=== PATIENT | female | born 1960 | race Caucasian/White ===

== ENCOUNTER 2016-06-18 15:16 | Outpatient (CLI) | payer OTHER ==
[2016-07-13] MEDS ORDERED: BUPROPION HCL150 M2 PO (14:46)
[2016-07-13] MEDS ORDERED: MELOXICAM7.5 MG PO (14:47)
[2016-07-13] MEDS ORDERED: CALCIUM 500 + D PO (14:47)
[2016-07-13] MEDS ORDERED: CYCLOBENZAPRINE5 MG PO (14:48)
[2016-07-13] MEDS ORDERED: MULTIPLE VITAMIN PO (14:48)
[2016-07-13] MEDS ORDERED: B CO PO (14:49)
[2016-07-13] MEDS ORDERED: [UNRECOGNIZED DRUG - OTHER] PO (14:49)
[2016-07-13] MEDS ORDERED: VITAMIN C500 M1 PO (14:50)
== END 2016-06-18 23:00 ==
LOC: LAB SRH 15:16
DX: Z01.812 Encounter for preprocedural laboratory examination (principal)
CPT/HCPCS: 92132

== ENCOUNTER → 2016-07-12 | Outpatient (CLI) | payer OTHER ==
[~2016-07-12] MED LIST: B CO PO; BUPROPION HCL150 M2 PO; CALCIUM 500 + D PO; CYCLOBENZAPRINE5 MG PO; DOCUSATE SODIU100 MG PO; ENTERIC COATED325 M1 PO; HYDROXYZINE PAM25 MG PO; MAPAP325 MG PO; MELOXICAM7.5 MG PO; MULTIPLE VITAMIN PO; OXYCODONE IR PO; VICODIN EQUIVAL1 TAB PO; VITAMIN C500 M1 PO; [UNRECOGNIZED DRUG - OTHER] PO; [UNRECOGNIZED DRUG - REMARK] PO
--- NOTE | 2016-07-12 13:09 | DIAGNOSTIC IMAGING REPORT ---
PROCEDURE: XR CHEST 2 VIEW INDICATION: PRE OP TECHNIQUE: PA and lateral views. COMPARISON: None. FINDINGS: Lungs are clear. Heart and mediastinum are normal. Thorax is normal. IMPRESSION: 1. Negative chest.
== END ==
LOC: RT SRH 05-31 13:00 → XR SRH 05-31 13:15 → RT SRH 12:15
DX: Z01.810 Encounter for preprocedural cardiovascular examination (principal); Z01.811 Encounter for preprocedural respiratory examination; Z01.812 Encounter for preprocedural laboratory examination
CPT/HCPCS: 90004; 90074; 90100; 94060; 95059

== ENCOUNTER 2016-07-18 07:12 | Inpatient (IN) | payer OTHER ==
[2016-07-18] VITALS (9 sets, daily range): BP systolic 110–173; BP diastolic 68–101
[~2016-07-18] VITALS: Ht 154.9 cm; Wt 70.0 kg
[~2016-07-18 07:12] MED LIST changes: -DOCUSATE SODIU100 MG PO; -ENTERIC COATED325 M1 PO; -HYDROXYZINE PAM25 MG PO; -MAPAP325 MG PO; -OXYCODONE IR PO; -VICODIN EQUIVAL1 TAB PO; -[UNRECOGNIZED DRUG - REMARK] PO
[2016-07-18] MEDS ORDERED: VICODIN EQUIVAL1 TAB PO (07:26)
--- NOTE | 2016-07-18 09:04 | Preoperative Progress Note ---
Preop Note Details Current Status: No Changes Physical Exam: No Changes Necessity: Still desired/necessary Other: CV Reviewed, Respiratory Reviewed, Review MARY LOU notes & Vitals
--- NOTE | 2016-07-18 09:04 | Preoperative Progress Note ---
Preop Note Details Current Status: No Changes Physical Exam: No Changes Necessity: Still desired/necessary Other: CV Reviewed, Respiratory Reviewed, Review MARY LOU notes & Vitals
--- NOTE | 2016-07-18 13:09 | Postoperative Progress Note ---
Postop Progress Note Preoperate Diagnosis: R hip DJD Postoperative Diagnosis: R hip DJD Surgeon: James Boyle MD Anesthesia: Spinal Findings: See dictation Procedure: R Total hip Arthroplasty Complications? No Condition: Stable EBL: 100 mL Fluid(s): 900 mL Drain(s): Hemovac Blood Administered: None Specimen(s) removed? No Grafts or Implants? Yes Graft/Implant type: Brown [employer] Nephew Synergy porous + WINTERS std offste size 11 femoral component, 36+0 oxinium femoral head, 52mm R3 acetabulat shell with one screw and central hole plug. 36 mm ID, 52 mm ODlateralized + 4mm R3 XLPE 20 degree acetab liner UHMWPE . (See nursing notes for details of grafts/implants)
--- NOTE | 2016-07-18 13:32 | DIAGNOSTIC IMAGING REPORT ---
PROCEDURE: XR HIP 2VW W W/O AP PELVIS-RT INDICATION: s/p R DERECK TECHNIQUE: AP view of the pelvis and hips with lateral view of the right hip. COMPARISON: None. FINDINGS: Right HIP: Right total hip replacement. Anatomic alignment. A drain is in place. PELVIS: Osseous pelvis is normal. IMPRESSION: 1. Negative pelvis and right the total hip replacement
--- NOTE | 2016-07-18 22:12 | OPERATIVE REPORT ---
DATE OF SURGERY: 07/18/2016 SURGEON: James Boyle MD PREOPERATIVE DIAGNOSIS: 1. Right hip degenerative joint disease with left shorter than right lower extremity limb length inequality secondary to prior femur fracture on the left side with radiographic evidence of heterotopic ossification about the greater trochanter on the left POSTOPERATIVE DIAGNOSIS: 1. Right hip degenerative joint disease with left shorter than right lower extremity limb length inequality secondary to prior femur fracture on the left side with radiographic evidence of heterotopic ossification about the greater trochanter on the left PROCEDURE PERFORMED: 1. Right total hip arthroplasty with Brown [employer] Nephew Synergy porous plus WINTERS standard offset size 11 femoral component, Oxinium 36 mm diameter +0 femoral head/ neck, 52 mm outer diameter R3 3-hole hemispherical stick tight acetabular shell with 1 screw and the central hole cover and 36 mm ID x 52 mm OD lateralize +4 mm R3 highly cross-linked XLPE 20-degree posterior superior elevated acetabular liner, ultra-high molecular weight polyethylene ANESTHESIA: Spinal. SPECIMENS: None. ESTIMATED BLOOD LOSS: 100 mL. FLUIDS: Blood replacement, 900 mL intravenous crystalloid. URINE OUTPUT: 180 mL per Ramirez. PATHOLOGY SPECIMEN: None. DRAINS: One medium Hemovac to be placed to suction when patient leaves the postanesthesia care unit. INDICATIONS: A 55-year-old woman has a history of prior left lower extremity left femur fracture, treated with intramedullary nail and subsequent hardware removal, gone on to have a left shorter than right lower extremity limb length inequality, which she thinks contributed to her developing end-stage right hip degenerative joint disease with [id number], loss of articular cartilage refractory to nonoperative interventions. We had preoperatively discussed using indomethacin for heterotopic ossification prophylaxis and that we could not likely fully correct her limb length inequality through her total hip replacement without leading to instability. Postoperative thromboembolic prophylaxis was agreed to be with aspirin. SURGICAL FINDINGS: Confirmed preoperative imaging. Bone quality was good. Hip stability was excellent. Via posterior approach she had grossly equalized limb length and absolute anterior stability, good soft tissue tension. She was stable in the position of sleep of 60 degrees flexion, maximum adduction and 75 degrees of internal rotation in the position of sitting in 90 degrees of flexion, neutral adduction and 60 degrees of internal rotation. Postoperative plan: X-rays will be obtained in the recovery room. She will have posterior hip precautions for 6 weeks. She will be weightbearing as tolerated with physical therapy. We will monitor her closely over the next 2 days and when standard discharge criteria are met, she will be discharged likely to home. Thromboembolic prophylaxis will be with knee-high TEDs and SCDs on bilateral lower extremities, as well as enteric-coated aspirin 325 mg twice daily for 6 weeks. Posterior hip precautions will be enforced for 6 weeks as well. She will return to clinic in 2 weeks for wound check and medication refill. Outpatient physical therapy referral as needed. SURGICAL TECHNIQUE: The patient was identified in the preoperative holding area. She denied any interval change in her medical condition. She had been cleared for surgery by her primary care provider. She was seen and examined by Anesthesia, nursing team members, and brought back to operating room where she was placed under a spinal anesthetic. Two grams of cefazolin were given intravenously for antibiotic prophylaxis. Pneumatic compression device was placed over knee-high MANDY hose on the nonoperative leg. The patient was placed in the right side up lateral decubitus position with an axillary roll after the Ramirez catheter was placed. Perineum and thorax were isolated off with plastic adhesive barrier drapes. Surgical pause was completed, confirming the correct patient, operative site, procedure, availability of implants and instrumentation, appropriate antibiotic delivery and thromboembolic prophylaxis, as well as a delivery of 1 g of intravenous tranexamic acid. Everyone in the room including surgical nursing, anesthetic team members were in agreement that we should proceed. The leg was circumferentially prepped from the rib cage to the plastic adhesive barrier drapes and all the way down the right hindquarter and lower extremity to the tips of the toes in a sterile fashion with ChloraPrep and draped free in a waterproof sterile fashion for surgery with stockinette over the leg to above the knee and skin isolated with Ioban. We marked an incision for posterior approach to the hip and executed the incision through skin and superficial dermis using electrocautery for deep dermis and subcutaneous adipose tissue. Fascia was swept and divided in line with the incision, splitting the gluteus billie proximally and the fascia krystin distally. The incision was subsequently extended further inferiorly for additional exposure. A Charnley retractor was placed. The piriformis was detached from its insertion and tagged with #2 FiberWire for retraction and subsequent repair. The short external rotators and posterior hip capsule were taken down off of their femoral insertion in 1 sleeve and tagged with #2 FiberWire for retraction, subsequent repair. The sciatic nerve was identified and protected throughout the procedure. The hip was dislocated posteriorly and the template placed to pranav the trajectory of the proximal femoral osteotomy, which was made with an oscillating saw. The femoral head was removed and sized. We reamed the acetabulum up initially in 2 mm increments after excising the degenerative labrum and soft tissue contents. Bone quality was excellent. We reamed to a 51, placed a trial 51 liner, felt that it fit well, impacted the 52 mm acetabular shell into position in appropriate anteversion and abduction while we shot for approximately 40 degrees of abduction and 20 degrees of anteversion. It had an excellent distinctive director speech language fit. Decision was made to place 1 screw in the posterior superior quadrant for additional stability as the plan was to use a +4 lateralizing liner with posterior lip for additional polyethylene thickness given her young age and additional stability posteriorly. The acetabulum was cleansed with pulse lavage after the central hole cover was placed and then the socket was packed with a clean laparotomy sponge and the proximal femur was delivered into the wound. We opened the canal with the box osteotome, used the canal finder to localize the axis of the femoral canal, suctioned the contents to minimize risk of fat embolism and then reamed up to the 11-12 reamer. The provisional proximal femoral osteotomy was already in a good position and we did not need to use the calcar reamer. We inspected the proximal femur and saw no longitudinal splits or other fractures of concern. We impacted into place the size 11 standard offset femoral component in appropriate anteversion to match her [place] anteversion and it had an excellent fit. Again, the proximal femur was inspected and there was no evidence of any split. Next, we trialed with various 36 mm femoral head, neck options. The 36 +0 provided appropriate leg length, soft tissue tension and stability as dictated above in the operative findings section. The definitive 36 mm Oxinium head with +0 neck length was then impacted onto the clean and dry Chakraborty taper and carefully reduced into the acetabulum. The wound was copiously irrigated and closed in layers using drill holes through the greater trochanter for repair of the capsule and short external rotators. The piriformis was sutured to the abductor tendon. A drain exited inferiorly and anteriorly. Fascia krystin and gluteal fascia were closed with [id number] 0 Vicryl, 2-0 Vicryl was used for Amy fascia and inverted undyed subdermal sutures, 3-0 V-Loc for the subcuticular closure and Dermabond over Steri-Strips for the skin. The drain was then used to instill 0.25% Marcaine with epinephrine and another gram of tranexamic acid into the operative field. Sterile dressings of Adaptic, 4 x 4's, and Tegaderm were applied. Abductor pillow was placed after the drapes were removed. The patient was transferred from the operating room table to the recovery room in the hospital bed, having tolerated the procedure well without apparent complication. All sponge, needle and instrument counts were reported correct prior to leaving the operating room.
[2016-07-19 02:48] VITALS: BP 125/62
[2016-07-19 06:29] VITALS: BP 125/74
--- NOTE | 2016-07-19 08:41 | Progress Note ---
Subjective General R hip pain controlled now on PO oxycodone but was poorly controlled at times last night. Pt inadverantly pulled out drain after minimal bloody output (40 mL ) per RN. Denies CP/SOB/N/T/W. Constitutional Denies: Fever, Chills, Sweats, Weakness. Respiratory Denies: SOB w/exertion. Neurological Denies: Weakness, Numbness. Physical Exam Vital Signs / I&Os Vital Signs Date Time Temp Pulse Resp B/P Pulse O2 O2 Flow FiO2 Ox Delivery Rate 07/19 0629 37.4 93 18 125/74 100 Room Air 07/19 0248 36.9 91 18 125/62 99 Room Air 07/18 2252 36.7 89 17 111/68 100 Room Air 07/18 1947 Room Air 07/18 1824 36.5 96 18 110/70 100 Room Air 07/18 1640 36.6 97 18 141/90 100 Room Air 07/18 1540 36.6 101 18 142/84 100 Room Air 07/18 1510 36.2 97 18 151/98 100 Room Air 07/18 1455 35.9 89 18 161/99 96 Room Air 07/18 1440 35.9 95 18 173/101 100 Room Air 07/18 1425 36.3 83 18 152/95 100 Room Air 07/18 1411 36.3 80 18 148/90 100 Room Air 0.0 07/18 1345 81 15 150/84 100 07/18 1335 81 15 152/81 100 07/18 1325 86 12 153/83 100 07/18 1315 81 13 145/89 98 07/18 1305 80 16 122/80 100 07/18 1255 90 20 132/83 100 07/18 1248 91 17 120/86 100 07/18 1243 36.3 94 15 138/83 100 nc 2.0 I&O 07/19 0000 07/18 1600 07/18 0800 Intake Total 120 4270 100 Output Total 1270 3310 Balance -1150 960 100 General Appearance Alert, Oriented X3, Cooperative, No acute distress, Abductor pillow in place. R SCDs off B not plugged in! Extremities Normal exam, No edema, No tenderness, calfs not tender Skin No Rashes, No Breakdown, No Significant Lesions, Dressings on and intact. Mild bloody drainage at drain site. Neurological Normal exam, Sensation intact, Fires B E&FHLs & AD&PFs Psych/Mental Status Mental status normal, Mood normal LAB Results Laboratory Tests 07/19 0550 Chemistry Plasma Sodium (136 - 145 mmol/L) 142 Plasma Potassium (3.5 - 5.1 mmol/L) 4.2 Plasma Chloride (98 - 107 mmol/L) 105 CO2 (Enzymatic) (21 - 32 mmol/L) 27 BUN (7 - 18 mg/dL) 10 Creatinine (0.6 - 1.3 mg/dL) 0.6 Est GFR ( Amer) (mL/min) >60 Est GFR (Non-Af Amer) (mL/min) >60 Glucose (70 - 110 mg/dL) 134 Plasma Calcium (8.5 - 10.1 mg/dL) 8.3 Hematology WBC (4.5 - 11.5 K/uL) 9.3 RBC (4.00 - 5.20 M/uL) 3.39 Hgb (12.0 - 16.0 gm/dL) 10.5 Hct (36.0 - 46.0 %) 31.4 MCV (80 - 100 fL) 93 MCH (26 - 34 pg) 31 RDW (11.6 - 14.8 %) 13.4 Neut % (Auto) (50 - 75 %) 69.5 Lymph % (Auto) (25 - 40 %) 22.4 [place] % (Auto) (3 - 14 %) 7.4 Eos % (Auto) (0 - 4 %) 0.5 Baso % (Auto) (0 - 2 %) 0.2 Plt Count, EDTA (150 - 400 K/uL) 242 PUBS MCHC (31 - 37 g/dL) 34 Imaging Post-op x-rays shjow well positioned, reduced R DERECK without fx. Assessment and Plan Problem List 1. Status post total replacement of right hip Plan Doing well POD#1 s/p R DERECK with hx left hip heterotopic bone after surgery for L fem fx and subsequent HWR. Will DC celebrex and start Indocin ant PT. Continue TEDs SCDs & ECASA 325mg 2x/d x 6 wks. Start PT with R posterior hip preecAUTIONS, WBAT R LE with walker.
[2016-07-19 11:13] VITALS: BP 199/68
[2016-07-19 14:24] VITALS: BP 112/62; BP 131/88
[2016-07-19 18:05] VITALS: BP 105/71
[2016-07-20 02:51] VITALS: BP 108/73
[2016-07-20 06:34] VITALS: BP 117/68
--- NOTE | 2016-07-20 08:05 | Progress Note ---
Subjective General Had hard day in PT yesterday - still needs to work on stairs for cearance to DC home tomorrow. Just NSAIDs, Tylenol and anxiolytics for pain control over night. Voided and had BM yest. Javi diet. Following posterior hip precautions. Constitutional Denies: Fever, Chills, Sweats, Weakness, Malaise. Respiratory Denies: Cough, Dry, SOB w/exertion. Cardiovascular Denies: Chest Pain. Physical Exam Vital Signs / I&Os Vital Signs Date Time Temp Pulse Resp B/P Pulse O2 O2 Flow FiO2 Ox Delivery Rate 07/20 0634 36.6 94 22 117/68 96 Room Air 0.0 07/20 0251 37.0 95 16 108/73 100 Room Air 0.0 07/20 0131 Room Air 07/19 1805 37.9 103 18 105/71 96 Room Air 07/19 1535 Room Air 0.0 07/19 1424 37.0 102 18 112/62 94 Room Air 07/19 1113 37.2 96 18 199/68 97 07/19 0935 Room Air I&O 07/20 0000 07/19 1600 07/19 0800 Intake Total 1020 1710 1377 Output Total 1200 1450 1790 Balance -180 260 -413 General Appearance Alert, Oriented X3, Cooperative, No acute distress Extremities No calf tenderness. Skin No Rashes, No Breakdown, No Significant Lesions, Dressings CDI, half dollar size bloody drainage on drain site dressing only. Neurological Normal speech, Sensation intact, No lateralizing signs, fires B AD& PFs Psych/Mental Status Mental status normal, Mood normal LAB Results Laboratory Tests 07/20 0530 Hematology Hgb (12.0 - 16.0 gm/dL) 10.3 Hct (36.0 - 46.0 %) 30.8 Assessment and Plan Problem List 1. Status post total replacement of right hip Plan Doing well POD#2. Will likely DC home tomorrow if/when cleared by PT. Will use Celebrex 200mg 2x/d while in hospital and Indocin p DC for HO prophylaxis. Cont current DVT proph and posterior hip precautions WBAT. Discussed home safety issues with dog and optional use of heel lift if R<>L LLD not completely corrected.
[2016-07-20 12:28] VITALS: BP 137/83
[2016-07-20 14:24] VITALS: BP 135/75
[2016-07-20 18:10] VITALS: BP 120/75
[2016-07-20 22:20] VITALS: BP 118/69
[2016-07-21 02:31] VITALS: BP 104/64
[2016-07-21 07:18] VITALS: BP 122/77
--- NOTE | 2016-07-21 10:15 | Progress Note ---
Subjective General Increased swelling R thigh. Pain control OK. Javi diet, voided and had BM. [place] she had fever and chill but low grade. Constitutional Fever, Chills. Denies: Sweats. Musculoskeletal Other (R hip pain with activity). Skin Bruising. Denies: Rash, Lesions, Jaundice. Neurological Denies: Weakness, Numbness, Change in speech. Physical Exam Vital Signs / I&Os Vital Signs Date Time Temp Pulse Resp B/P Pulse O2 O2 Flow FiO2 Ox Delivery Rate 07/21 0718 36.8 96 20 122/77 97 Room Air 0.0 07/21 0231 36.9 96 18 104/64 93 Room Air 07/21 0000 Room Air 07/20 2220 37.1 104 20 118/69 95 Room Air 07/20 1917 Room Air 0.0 07/20 1845 37.5 07/20 1810 37.8 113 20 120/75 97 Room Air 07/20 1448 37.4 07/20 1424 37.9 108 20 135/75 97 Room Air 0.0 07/20 1228 37.3 98 20 137/83 100 Room Air 0.0 I&O 07/21 0000 07/20 1600 07/20 0800 Intake Total 690 240 450 Output Total 9839 553 1801 Balance -910 -740 -1200 General Appearance Alert, Oriented X3, Cooperative, No acute distress, mild- moderate R thigh swelling Extremities new mild R calf tenderness Skin No Rashes, No Breakdown, No Significant Lesions, Small amount of old bloody drainage on dressings at drain site > incision, Periincisional bruising and redness within normal for post-op status Neurological Sensation intact, No lateralizing signs, Fires AD&PFs Psych/Mental Status Mental status normal, Mood normal, A little anxious Assessment and Plan Problem List 1. Status post total replacement of right hip Plan Doing well POD#3 s/p R DERCEK. Will DC home after U/S to R/O DVT. RTC already set up for 07/26/16. May take ibuprofen 800mg tablets if she cant get indomethacin Rx filled.
--- NOTE | 2016-07-21 10:15 | Progress Note ---
Subjective General Increased swelling R thigh. Pain control OK. Javi diet, voided and had BM. [place] she had fever and chill but low grade. Constitutional Fever, Chills. Denies: Sweats. Musculoskeletal Other (R hip pain with activity). Skin Bruising. Denies: Rash, Lesions, Jaundice. Neurological Denies: Weakness, Numbness, Change in speech. Physical Exam Vital Signs / I&Os Vital Signs Date Time Temp Pulse Resp B/P Pulse O2 O2 Flow FiO2 Ox Delivery Rate 07/21 0718 36.8 96 20 122/77 97 Room Air 0.0 07/21 0231 36.9 96 18 104/64 93 Room Air 07/21 0000 Room Air 07/20 2220 37.1 104 20 118/69 95 Room Air 07/20 1917 Room Air 0.0 07/20 1845 37.5 07/20 1810 37.8 113 20 120/75 97 Room Air 07/20 1448 37.4 07/20 1424 37.9 108 20 135/75 97 Room Air 0.0 07/20 1228 37.3 98 20 137/83 100 Room Air 0.0 I&O 07/21 0000 07/20 1600 07/20 0800 Intake Total 690 240 450 Output Total 9946 656 0149 Balance -910 -740 -1200 General Appearance Alert, Oriented X3, Cooperative, No acute distress, mild- moderate R thigh swelling Extremities new mild R calf tenderness Skin No Rashes, No Breakdown, No Significant Lesions, Small amount of old bloody drainage on dressings at drain site > incision, Periincisional bruising and redness within normal for post-op status Neurological Sensation intact, No lateralizing signs, Fires AD&PFs Psych/Mental Status Mental status normal, Mood normal, A little anxious Assessment and Plan Problem List 1. Status post total replacement of right hip Plan Doing well POD#3 s/p R DERECK. Will DC home after U/S to R/O DVT. RTC already set up for 07/26/16. May take ibuprofen 800mg tablets if she cant get indomethacin Rx filled.
[2016-07-21 10:45] VITALS: BP 108/65
[2016-07-21] MEDS ORDERED: ENTERIC COATED325 M1 PO (11:32)
[2016-07-21] MEDS ORDERED: MAPAP325 MG PO (11:33)
[2016-07-21] MEDS ORDERED: OXYCODONE IR PO (11:33)
[2016-07-21] MEDS ORDERED: [UNRECOGNIZED DRUG - REMARK] PO (11:34)
[2016-07-21] MEDS ORDERED: DOCUSATE SODIU100 MG PO (11:35)
[2016-07-21] MEDS ORDERED: HYDROXYZINE PAM25 MG PO (11:35)
--- NOTE | 2016-07-21 11:39 | Provider's Discharge Care Plan ---
Problem, Goal, Plan Problem List 1. Status post total replacement of right hip Goals: Improve disease control, Improve function, Increase independence Instructions: Follow up as directed, Take meds as directed (follow posterior hip precautio)
--- NOTE | 2016-07-21 12:33 | Discharge Summary ---
Discharge Summary Report Admit Date 07/18/16 Discharge Date 07/21/16 Admission Diagnosis R hip DJD, hx L hip heterotopic ossification after surgeries for L femur fx with L<R lower extremity limb length inequality. Discharge Diagnosis s/p R total hip replacement Brief History see H&P Hospital Course Uneventful, pain controlled with oxycodone, B LE DVT ruled out with ultrasound day of discharge. Discharge Instructions/Meds Keep dressings and steristrip on, keep incision dry. Return to clinic 07/26/16. Follow right posterior hip precautions, full weight bearing with a walker and fall precautions. Take Indomethacin 25 mg 3x/day or 75mg ER once daily for 6 weeks, if unable to obtain Indomethacin then use Ibuprofen 800 mg 3x/day with food instead. Take enteric coated aspirin 325 mg 2x/day for 6 weeks post-op. Call for any fever > 101F, chills, drainage, chest pain or shortness of breath. Se discharge orders for full med list (except indomethacin not listed as above)
--- NOTE | 2016-07-21 13:52 | DIAGNOSTIC IMAGING REPORT ---
PROCEDURE: US VENOUS - BILATERAL EXT INDICATION: rule out DVT right lower extremity edema status post total hip replacement 4 days ago. TECHNIQUE: Duplex sonography of the deep venous system in both lower extremities was performed. Compression and augmentation techniques were used. COMPARISON: None. FINDINGS: Each interrogated segment of deep vein from the common femoral vein into the calf veins demonstrates normal compressibility, augmentation and/or color Doppler flow without filling defect. No evidence of significant soft-tissue edema, soft-tissue mass or cyst. IMPRESSION: 1. No deep venous thrombosis in either lower extremity. 2. Preliminary report given by the technologist to the emergency room provider.
== END 2016-07-21 13:20 | disposition home or self-care (01) | DRG 301 ==
LOC: SCU SRH 07:12 → ACUTE2 SRH 07:12 → U SRH 09:00 → ACUTE2 SRH 14:10
PROVIDERS: ADMIT Orthopaedic Surgery
PROC: 0SR90JA Replacement of Right Hip Joint with Synthetic Substitute, Uncemented, Open Approach (ICD-10-PCS; principal; 2016-07-18 09:00)
DX: M16.11 Unilateral primary osteoarthritis, right hip (principal); M89.8X8 Other specified disorders of bone, other site; M21.752 Unequal limb length (acquired), left femur; S72.112 Displaced fracture of greater trochanter of left femur; X58.XXXS Exposure to other specified factors, sequela; E11.9 Type 2 diabetes mellitus without complications; F32.9 Major depressive disorder, single episode, unspecified; E78.5 Hyperlipidemia, unspecified